=== PATIENT | female | born 1995 | race Caucasian/White ===

== ENCOUNTER 2017-02-12 10:43 | Emergency (ER) | payer BC ==
[2017-02-12 11:24] VITALS: BP 128/59
--- NOTE | 2017-02-12 11:34 | UC ---
Throat Pain/Nasal Raciel HPI - HPI Summary HPI Summary: complaint of red itchy right eye that started 2 days ago woke up with crusty discharge in eyelashes then spread to the left eye yesterday denies eye pain and vision changes complaint of sore throat for approx 6 days painful to swallow nasal congestion intermittent cough denies fever anc chills took some tylenol without relief - History of Current Complaint Chief Complaint: UCEye Stated Complaint: EYE COMPLAINT SORE THROAT Time Seen by Provider: 02/12/17 11:27 Hx Obtained From: Patient Hx Last Menstrual Period: 01/29/17 - Allergies/Home Medications Allergies/Adverse Reactions: Allergies Allergy/AdvReac Type Severity Reaction Status Date / Time seasonal Allergy Eyes Uncoded 02/12/17 11:25 Itchy/Swollen/Red/Watery Home Medications: Home Medications Norethindrone/Eth Est .03/13NF [Junel (NF)] 1 tab PO DAILY 02/12/17 [ History Confirmed 02/12/17] PMH/Surg Hx/FS Hx/Imm Hx Previously Healthy: Yes - Surgical History Surgical History: Yes Surgery Procedure, Year, and Place: ear tubes. ankle sx - Family History Known Family History: Positive: Hypertension - father Negative: Cardiac Disease, Diabetes - Social History Occupation: Student Alcohol Use: Weekly Substance Use Type: None Smoking Status (MU): Never Smoked Tobacco Review of Systems Constitutional: Negative Skin: Negative Eyes: Drainage, Eye Redness ENT: Sore Throat Respiratory: Negative Cardiovascular: Negative Gastrointestinal: Negative Genitourinary: Negative Motor: Negative Neurovascular: Negative Musculoskeletal: Negative Neurological: Negative Psychological: Negative All Other Systems Reviewed And Are Negative: Yes Physical Exam Triage Information Reviewed: Yes Appearance: No Pain Distress, Well-Nourished Vital Signs: Initial Vital Signs Temp 97.5 F 02/12/17 11:15 Pulse 69 02/12/17 11:15 Resp 14 02/12/17 11:15 BP 128/59 02/12/17 11:15 Pulse Ox 100 02/12/17 11:15 Vital Signs Reviewed: Yes Eyes: Positive: Conjunctiva Inflamed, Discharge ENT: Positive: Pharyngeal erythema, TMs normal, Tonsillar swelling, Tonsillar exudate. Negative: Nasal congestion Neck: Positive: No Lymphadenopathy Respiratory: Positive: Lungs clear, Normal breath sounds, No respiratory distress, No accessory muscle use Cardiovascular: Positive: RRR, No Murmur, Pulses Normal Abdomen Description: Positive: Nontender, Soft Bowel Sounds: Positive: Present Musculoskeletal: Positive: No Edema Neurological: Positive: Alert Psychological Exam: Normal Skin Exam: Normal Throat Pain/Nasal Course/Dx - Differential Dx/Diagnosis Differential Diagnosis/HQI/PQRI: Pharyngitis, Sinusitis, Tonsillitis Provider Diagnoses: conjuctivitis. pharyngitis Discharge - Discharge Plan Condition: Stable Disposition: HOME Prescriptions: Tobramycin (Ophth) [Tobrex] 0.3 % OP Q4HR #1 luciano Patient Education Materials: Conjunctivitis (ED), Pharyngitis (ED) Referrals: Glenn Tucker MD [Primary Care Provider] - Additional Instructions: CONJUNCTIVITIS What is Conjunctivitis? Conjunctivitis is redness and swelling of the conjunctiva, the thin transparent layer that lines the inner eyelid and covers the white part of the eye. The three main types of conjunctivitis are infectious, allergic, and chemical. The infectious type, commonly called "pink eye," is caused by a contagious virus or by bacteria. Your body's allergies to pollen, cosmetics, animals or fabrics often bring on allergic conjunctivitis. Irritants like air pollution, noxious fumes and chlorine in swimming pools may produce the chemical form. Symptoms Might Include: More tearing Eye pain Redness in the eyes Gritty feeling in the eyes Itching of the eye Blurred vision Sensitivity to light Crusts that form on the eyelid overnight Treatment Recommendations: Use eye drops or ointment as directed. Do not rub or touch your eyes. Wash your hands frequently. Use cool compresses to relieve pain and itching. Prevention: Do not share eye make-up. Replace eye make-up frequently. Do not share towels, washcloths, etc. Do not share eye drops. . Call Your Doctor or Return Here IF: Your symptoms worsen or do not improve in 3 to 4 days. You have problems with, or loss of, your vision. You have a significant increase in pain. You have any new symptoms that worry you. Your blood pressure is pre-hypertensive reading. Please contact your primary care provider within 1 day -4 weeks for further evaluation Increase fluids and rest Take acetaminophen or ibuprofen for fever or pain Please review your discharge instructions. If your symptoms do not improve please call your primary care provider or return to urgent care.
== END 2017-02-12 12:01 | disposition home or self-care (01) ==
LOC: UCCORT 10:43
DX: H10.9 Unspecified conjunctivitis (principal); J02.9 Acute pharyngitis, unspecified
CPT/HCPCS: 87651; 99212; G0463

== ENCOUNTER 2017-09-11 12:55 | Emergency (ER) | payer BC ==
[2017-09-11 13:16] VITALS: BP 125/73
--- NOTE | 2017-09-11 13:33 | UC ---
Throat Pain/Nasal Raciel HPI - HPI Summary HPI Summary: 22 female presents to with complaints of sore throat x 2 weeks. Patient states she has been looking and taking pictures and noticed a white spot on her left tonsil. Denies fever, cough, chills and fatigue. Denies headache and difficulty swallowing or breathing. Pain worsens with swallowing and when she wakes up in the morning. Has been taking tylenol and using humidifier without relief. Patient admits to being diagnosed with mono in the past however this does not feel like that. No other complaints. No PMHx. - History of Current Complaint Chief Complaint: UCRespiratory Stated Complaint: ST Time Seen by Provider: 09/11/17 13:03 Hx Obtained From: Patient Hx Last Menstrual Period: 09/04/17 ?: No Onset/Duration: Sudden Onset, Lasting Weeks, Still Present Severity: Moderate Pain Intensity: 5 Pain Scale Used: 0-10 Numeric Cough: None Associated Signs & Symptoms: Positive: Dysphagia - Epiglottits Risk Factors Epiglottis Risk Factors: Negative - Allergies/Home Medications Allergies/Adverse Reactions: Allergies Allergy/AdvReac Type Severity Reaction Status Date / Time seasonal Allergy Eyes Uncoded 09/11/17 13:09 Itchy/Swollen/Red/Watery PMH/Surg Hx/FS Hx/Imm Hx - Additional Past Medical History Additional PMH: Denies DM and HTN. NO other known PMHx. Had mono in the past - Surgical History Surgical History: Yes Surgery Procedure, Year, and Place: ear tubes. ankle sx - Family History Known Family History: Positive: Hypertension - father Negative: Cardiac Disease, Diabetes - Social History Alcohol Use: Weekly Substance Use Type: None Smoking Status (MU): Never Smoked Tobacco Have You Smoked in the Last Year: No Review of Systems Constitutional: Negative ENT: Sore Throat Respiratory: Negative Cardiovascular: Negative Musculoskeletal: Negative Neurological: Negative All Other Systems Reviewed And Are Negative: Yes Physical Exam Triage Information Reviewed: Yes Appearance: Well-Appearing, No Pain Distress, Well-Nourished Vital Signs: Initial Vital Signs Temp 97.4 F 09/11/17 13:09 Pulse 73 09/11/17 13:09 Resp 18 09/11/17 13:09 BP 125/73 09/11/17 13:09 Pulse Ox 100 09/11/17 13:09 Vital Signs Reviewed: Yes Eyes: Positive: Conjunctiva Clear ENT: Positive: Normal ENT inspection, Hearing grossly normal, Pharynx normal, TMs normal, Tonsillar exudate - possible tonsillolith of left tonsil noted, without erythema, minmal edema, Uvula midline - no sign of peritonsillar abscess , airway patent. Negative: Pharyngeal erythema, Nasal congestion, Tonsillar swelling, Trismus, Muffled voice, Dental tenderness, Sinus tenderness Neck: Positive: Supple, Nontender, No Lymphadenopathy Respiratory: Positive: Chest non-tender, Lungs clear, Normal breath sounds, No respiratory distress, No accessory muscle use Cardiovascular: Positive: RRR, No Murmur, Pulses Normal Abdomen Description: Positive: Soft Musculoskeletal Exam: Normal Neurological Exam: Normal Skin Exam: Normal Throat Pain/Nasal Course/Dx - Course Course Of Treatment: rapid strep obtained and negative. will treat symptomatically. no fever, or signs of bacterial infection on PE. Recommended massage, not picking at tonsil, salt water gargles multiple times daily for 1-2 weeks, lozenges and follow up. chloraspetic spray if desired. if does not improve with symptomatic measures return. aware of worsening signs and symptoms. no concern for other etiolgy at this time. - Differential Dx/Diagnosis Differential Diagnosis/HQI/PQRI: Laryngitis, Pharyngitis, Tonsillitis, Other - tonsilith Provider Diagnoses: tonsillolith, pharyngitis Discharge - Discharge Plan Condition: Good Disposition: HOME Patient Education Materials: Pharyngitis (ED), Tonsillitis (ED) Referrals: Garrett KIMBLE,Glenn Cross [Primary Care Provider] - Additional Instructions: Gargle with salt water multiple times daily while symptoms persist 1-2 weeks. Chloraseptic spray if desired, to soothe sore throat. Increase fluid intake. Ibuprofen for pain/inflammation. Avoid citric, acidic, spicy foods/drinks. Maintain good oral hygiene. Recommend lozenges. IF symptoms worsen or do not improve, as discussed, please seek medical attention. Follow up with PCP in 1 week to ensure improvement.
== END 2017-09-11 13:46 | disposition home or self-care (01) ==
LOC: UCCORT 12:55
DX: J35.8 Other chronic diseases of tonsils and adenoids (principal); J02.9 Acute pharyngitis, unspecified
CPT/HCPCS: 87651; 99211; G0463

== ENCOUNTER 2017-09-19 16:41 | Emergency (ER) | payer BC ==
--- NOTE | 2017-09-19 17:28 | UC ---
Respiratory Complaint HPI - HPI Summary HPI Summary: Pt presents with cough. She tells me that she was seen about 10 days ago for a ST and dx'd as a viral illness - her ST is better, but about 4 days ago she developed a dry cough and wheezing. 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 She has not tried anything OTC. She denies fever, chills, sinus symptoms, SOB, chest pain, abdominal pain, N/V/D/C - History of Current Complaint Chief Complaint: UCRespiratory Stated Complaint: COUGH,ST,LORETA,EARS Time Seen by Provider: 09/19/17 17:28 Hx Obtained From: Patient Hx Last Menstrual Period: 09/04/17 Onset/Duration: Gradual Onset Severity Initially: Mild Severity Currently: Moderate Aggravating Factors: Exertion, Deep Breaths Alleviating Factors: Spontaneous Resolution Associated Signs And Symptoms: Positive: Wheezing - Allergies/Home Medications Allergies/Adverse Reactions: Allergies Allergy/AdvReac Type Severity Reaction Status Date / Time seasonal Allergy Eyes Uncoded 09/19/17 17:29 Itchy/Swollen/Red/Watery PMH/Surg Hx/FS Hx/Imm Hx Previously Healthy: Yes - Surgical History Surgical History: Yes Surgery Procedure, Year, and Place: ear tubes. ankle sx - Family History Known Family History: Positive: Hypertension - father Negative: Cardiac Disease, Diabetes - Social History Occupation: Student Lives: Dormitory/Roommates Alcohol Use: Weekly Substance Use Type: None Smoking Status (MU): Never Smoked Tobacco Have You Smoked in the Last Year: No Review of Systems Constitutional: Negative Skin: Negative Eyes: Negative ENT: Negative Respiratory: Cough Cardiovascular: Negative Gastrointestinal: Negative All Other Systems Reviewed And Are Negative: Yes Physical Exam Triage Information Reviewed: Yes Appearance: Well-Appearing, Well-Nourished Vital Signs Reviewed: Yes Eyes: Positive: Conjunctiva Clear. Negative: Conjunctiva Inflamed, Discharge ENT: Positive: Hearing grossly normal, Pharynx normal, TMs normal, Uvula midline. Negative: Pharyngeal erythema, Nasal congestion, Nasal drainage, TM bulging, TM dull, TM red, Tonsillar swelling, Tonsillar exudate, Muffled voice, Hoarse voice, Sinus tenderness Neck: Positive: Supple, Nontender, No Lymphadenopathy Respiratory: Positive: Chest non-tender, No respiratory distress, No accessory muscle use, Wheezing - Throughout Cardiovascular: Positive: RRR, No Murmur, Pulses Normal Neurological: Positive: Alert Psychological: Positive: Age Appropriate Behavior Skin: Negative: rashes Respiratory Course/Dx - Course Course Of Treatment: Cough and wheezing - Will try albuterol and short course of prednisone. Does not appear infectious at this time. - Differential Dx/Diagnosis Differential Diagnosis/HQI/PQRI: Asthma, Bronchitis, Influenza, Laryngitis, Lower Resp Infection, Sinusitis Provider Diagnoses: Bronchitis Discharge - Discharge Plan Condition: Stable Disposition: HOME Prescriptions: Albuterol HFA INHALER* [Ventolin HFA Inhaler*] 1 - 2 puff INH Q6H PRN #1 mdi PRN Reason: Cough predniSONE TAB* [Deltasone TAB*] 30 mg PO DAILY #12 tab Patient Education Materials: Acute Bronchitis (ED) Referrals: Garrett KIMBLE,Glenn Cross [Medical Doctor] - Additional Instructions: If you develop a fever, SOB, chest pain, new or worsening symptoms - please call your PCP or go to the ED. Your blood pressure was high at todays visit. Please see your primary provider within 4 weeks for recheck and re-evaluation.
[2017-09-19 17:33] VITALS: BP 137/65
== END 2017-09-19 17:53 | disposition home or self-care (01) ==
LOC: UCCORT 16:41
DX: J40 Bronchitis, not specified as acute or chronic (principal)
CPT/HCPCS: 99212; G0463